=== PATIENT | female | born 1970 | race Caucasian/White ===

== ENCOUNTER 2024-09-06 11:52 | Outpatient (CLI) | payer OTHER, SELFPAY | END 2024-09-06 11:53 | disposition home or self-care (01) | PROVIDERS: PCP Internal Medicine; Visit Provider Internal Medicine | DX: E11.9 Type 2 diabetes mellitus without complications (principal); Z79.85 Long-term (current) use of injectable non-insulin antidiabetic drugs | CPT/HCPCS: 80053; 80061; 82043; 82570 ==

== ENCOUNTER 2024-11-21 09:42 | Emergency (ER) | payer OTHER, SELFPAY ==
--- OUTSIDE RECORDS SUMMARY | 2024-11-21 09:44 | XMS_ITS | Patient Health Record ---
Author Organization [facility] Address [address] [place] [address] Care Team Providers Care General Production Manager Name Role Phone Olga Quick Primary Care Provider REYNALDO Ashraf Unavailable [phone] None, None Unavailable Unavailable Allergies Allergen (clinical drug ingredient) Drug/Non Drug Allergy documented on EMR Reaction Allergy Type Onset Date Status Penicillin Unknown Drug Allergy Active Reason For Referral No Information Medications Medication SIG (Take, Route, Frequency, Duration) Notes Start Date End Date Status Omeprazole 20 MG Capsule Delayed Release TAKE 1 CAPSULE BY MOUTH DAILY Oral; Duration: 90 Active Breo Ellipta 100-25 MCG/ACT Aerosol Powder Breath Activated 1 puff Inhalation Once a day Active Chlorthalidone 25 MG Tablet Oral; Duration: 90 Active Atorvastatin Calcium 20 MG Tablet Oral; Duration: 90 Active Lisinopril 20 MG Tablet Oral; Duration: 90 Active metFORMIN HCl ER 500 MG Tablet Extended Release 24 Hour Oral; Duration: 90 Active Sertraline HCl 100 MG Tablet Oral; Duration: 90 Active Ventolin HFA 108 (90 Base) MCG/ACT Aerosol Solution Inhalation; Duration: 17 Active Naproxen 500 MG Tablet TAKE ONE TABLET B Y MOUTH TWICE A DAY Oral; Duration: 30 Active Social History Tobacco Use: Social History Observation Description Date Details (start date - stop date) Current Smoker NA - NA Social History Alcohol Use: Social Info Question Answer Notes Alcohol Screen Did you have a drink containing alcohol in the past year? Yes How often did you have a drink containing alcohol in the past year? 2 to 4 times a month (2 points) How often did you have 6 or more drinks on one occasion in the past year? Never (0 point) Points 2 Interpretation Negative Recreational drug use Social Info Question Answer Notes Did you ever use recreational drugs? Answer: No Tobacco Use: Social Info Question Answer Notes Tobacco use/smoking Are you a current smoker How often do you smoke cigarettes? every day How many cigarettes a day do you smoke? 6-10 How soon after you wake up do you smoke your first cigarette? 6-30 minutes Are you interested in quitting? 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.0) Active confirmed Problem Vasomotor rhinitis (6589883) Vasomotor rhinitis (J30.0) Active confirmed Plan Of Treatment No Information Insurance Providers Payer Name Payer Address Payer Phone Subscriber Number Group Number Insured Name Patient Relationship to Insured Coverage Start Date Coverage End Date [employer] [address] [place], [place] [id number] [phone] Akilah Dodge Self - patient is the insured [id number] [place] prior [place] 2023 [address] [address] [place], [place] [id number] Akilah Dodge Self - patient is the insured [place] [employer] [address] [address] [place] [address] [id number] Akilah Dodge Self - patient is the insured Medical (General) History Medical History History ICD Code anesthesia problems cataracts asthma/lung disease diabetes hypertension sleep apnea Surgical History Surgery Date(Month/Year) Sven fundopleaton 2020 ASDF 2019 Ablasion 2018 Elbow 2000 septo, catrina SMR turbs, catrina [employer] [place] 03/2022
--- OUTSIDE RECORDS SUMMARY | 2024-11-21 09:44 | XMS_ITS | Patient Health Record ---
Author Organization [facility] Address [address] [address] Care Team Providers Care Presidential Support Specialist Name Role Phone MicheleUriry Primary Care Provider Allergies Allergen (clinical drug ingredient) Drug/Non Drug Allergy documented on EMR Reaction Allergy Type Onset Date Status Penicillin Unknown Drug Allergy Active Reason For Referral No Information Medications Medication SIG (Take, Route, Frequency, Duration) Notes Start Date End Date Status Omeprazole 20 MG 1 capsule 30 minutes before morning meal Orally Once a day; Duration: 30 day(s) Active hydrOXYzine HCl 25 MG 1 tablet at bedtim e as needed Orally Once a day; Duration: 30 day(s) Not-Taking clonazePAM 0.5 MG 1 tablet at bedtime Orally Once a day Active Ozempic (0.25 or 0.5 MG/DOSE) 2 MG/3ML .25ml Subcutaneous Once a week Active Chlorthalidone 25 MG 0.5 tablet Orally O nce a day Active Lisinopril 10 MG 1 tablet Orally Once a day Active Sertraline HCl 50 MG 1 tablet Orally Onc e a day; Duration: 30 day(s) Active Ondansetron 4 MG 1 tablet on the tong ue and allow to dissolve Orally Once a day; Duration: 30 day(s) Not-Taking Atorvastatin Calcium 20 MG 1 tablet Orally Once a day; Duration: 30 day(s) Active metFORMIN HCl 1000 MG 1 tablet with a me al Orally Once a day Active Problems Problem Type SNOMED Code ICD Code Onset Dates Problem Status W/U Status Risk Notes Problem Abnormal uterine bleeding (2776552890978 0) Abnormal uterine bleeding (N93.9) Active confirmed Plan Of Treatment No Information Insurance Providers Payer Name Payer Address Payer Phone Subscriber Number Group Number Insured Name Patient Relationship to Insured Coverage Start Date Coverage End Date [employer] [address] [address] [place] [id number] Akilah Dodge Self - patient is the insured 1 [facility] [employer] [address] [address] [place] [address] [id number] Akilah Dodge Self - patient is the insured 0 Medical (General) History Medical History History ICD Code Obstructive sleep apnea Palpitations Epidermoid cyst Hyperlipidemia Hypertension Prediabetes h/o PCOS Surgical History Surgery Date(Month/Year) 1989 Suzanna moved to other side 2009 Cervical ASDF 2019 Epidermoid cyst 05/2022 Endometrial ablation 2017
--- OUTSIDE RECORDS SUMMARY | 2024-11-21 09:45 | XMS_ITS | Clinical Summary ---
Author Organization [facility] Address [address] [place] [address] Care Team Providers Care Employee Development Director Name Role Phone Pcp, No Primary Care Provider Unavailabl e Allergies Active Allergy Reactions Criticality Noted Date Comments Codeine *Unknown 07/02/2001 Swelling; has been taking cough syrup with codeine ok Doxycycline Rash,Edema 04/04/2014 Nickel Rash 10/27/2021 Penicillins *Unknown - Childhood Rxn,Hives,Rash 09/13/2010 Childhood allergy Sulfa (Sulfonamide Antibiotics) Hives 02/03/2020 Medications lisinopriL (PRINIVIL; ZESTRIL) 10 mg tablet Take 10 mg by mouth once daily. Active atorvastatin (LIPITOR) 20 mg tablet Take 20 mg by mouth once daily. Active chlorthalidone (HYGROTON) 12.5 mg as half tablet Take 12.5 mg by mouth every morning. Active clonazePAM (KLONOPIN) 0.5 mg tablet TAKE ONE TABLET BY MOUTH EVERY DAY NEEDED FOR PANIC ATTACK MAY CAUSE DROWSINESS DO NOT DRIVE IF TAKEN 2 Active sertraline (ZOLOFT) 50 mg tablet TAKWE 1 TABLET BY MOUTH DAILY 2 Active Ozempic 0.25 mg or 0.5 mg(2 mg/1.5 mL) pen INJECT 0.25 MG UNDER THE SKIN EVERY 7 DAYS 3 Active ondansetron (ZOFRAN ODT) 4 mg disintegrating tablet Take 4 mg by mouth. 2 Active omeprazole (PRILOSEC) 20 mg Delayed-Release capsule Take 20 mg by mouth. 3 Active naproxen (NAPROSYN) 500 mg tablet Take 500 mg by mouth two times daily. 2 Active metFORMIN (GLUCOPHAGE) 500 mg tablet TAKE ONE TABLET BY MOUTH EVERY MORNING AND TAKE TWO TABLETS BY MOUTH EVERY EVENING 3 Active metoclopramide HCl (REGLAN) 10 mg tabletIndications: Nausea vomiting and diarrhea Take 1 Tablet (10 mg) by mouth every 6 hours if needed for Nausea/Vomitin g. 20 Tablet 3 Active magic mouthwash 1:1:1 (diphen 12.5mg/5mL-lidocai ne 2%-maalox [id number]/5ml) (AMB MIX)Indications:Mo uth pain,Pharyngitis, unspecified etiology Swish and spit 5-10 mL by mouth 4 times daily if needed for Mouth Sores or Sore Throat (equal parts maalox, viscous lidocaine, benadryl). 240 mL 5 Active Social History Tobacco Use Types Packs/Day Years Used Date Smoking Tobacco: Every Day Cigarettes Smokeless Tobacco: Never Alcohol Use Standard Drinks/Week Comments Yes 3 (1 standard drink = 0.6 oz pur e alcohol) occ Interpersonal Safety Answer Date Record ed Are you being hit, kicked, p ushed or yelled at (see row info)? No 09/06/2023 Interpersonal Safety Abuse 12 - 18 Not on file 09/06/2023 Interpersonal Safety Ambulatory Vulnerability No t on file 09/06/2023 Comments No Sex and Gender Information Value Date Recorded Sex Assigned at Female 06/01/2024 5:09 AM CDT Legal Sex Female 10:28 PM CDT Gender Identity Female 06/01/2024 5:09 AM CDT Sexual Orientation Straight 06/01/2024 5: 09 AM CDT Obstetrics History Last Filed Vital Signs Vital Sign Reading Time Taken Comments Blood Pressure 153/91 06/03/2024 10:57 AM CDT Pulse 71 06/03/2024 10:57 AM CDT Temperature 37.1 C (98.7 F) 06/03/2024 10:57 AM CDT Respiratory Rate 16 06/03/2024 10:57 AM CDT Oxygen Saturation 99% 06/03/2024 10:57 AM CDT Inhaled Oxygen Concentration - - Weight 77.1 kg (170 lb) 06/03/2024 10:57 AM CDT Height 165.1 cm (5' 5) 06/03/2024 10:57 AM CDT Body Mass Index 28.29 06/03/2024 10:57 AM CDT Plan of Treatment Health Maintenance Due Date Last Done Comments Tetanus booster 09/16/1983 Depression screening for age 12+ 1984 HIV for age 15-65 09/16/1987 BMI (ht and wt on same day) for age 18+ 1990 Hepatitis C screening for age 18-79 1990 Hepatitis B series for 19+ ( 1 of 3 - 19+ 3-dose series) 09/16/1991 Pneumococcal series for age 50+ (1 of 2 - PCV) 09/16/1991 Pap test for age 21-65 1993 Colonoscopy through age 75 2017 Lipids for age 45-75 2017 Mammogram for age 45-75 2017 Zoster (shingles) series for age 50+ (1 of 2) 2022 COVID-19 vaccine series ( - 2024- season) 2024 02/11/2021, 07/14/2020, 06/16/2020 Influenza Vaccine (#1) 2024 RSV vaccine for adults or pr egnancy (1 - 1-dose 75+ series) 09/16/2047 Insurance [place] [id number] [place] [id number] Care Teams Employee Development Director Relationship Specialty Start Date End Date Pcp, No . PCP - General 05/28/24
[2024-11-21 09:46] VITALS: BP 111/67; PULSE 70; RESP 16; TEMP 36.2; O2SAT 98; BMI 28.3
--- NOTE | 2024-11-21 10:13 | ED.GENADULT ---
HPI - General Adult General Chief complaint: Lower Extremity Swelling Stated complaint: L foot swollen and in pain Time Seen by Provider: 11/21/24 09:51 Source: patient Mode of arrival: ambulatory Limitations: no limitations History of Present Illness HPI narrative: 54-year-old female presenting today with left foot pain. Pain was present when she woke up Thursday morning, yesterday. Pain is in present for the last 24 hours it has been slowly getting worse. She denies trauma to the leg. She states that on Thursday she did have leftover sloppy [place], no alcohol use. She denies fevers, chills, nausea or vomiting. She has a hard time walking secondary to the pain. Pain does not radiate up the leg. This has never happened to her before. Her past medical history significant for diabetes, not insulin dependent. She also has a history of hypertension and anxiety. Patient takes metformin, Ozempic, omeprazole, lisinopril, chlorthalidone, atorvastatin, sertraline. Related Data Home Medications ?Medication ?Instructions ?Recorded ?Confirmed atorvastatin 20 mg tablet 20 mg PO QDAY 09/06/24 11/21/24 chlorthalidone 12.5 mg tablet 12.5 mg PO QDAY 09/06/24 11/21/24 lisinopril 10 mg tablet 10 mg PO QDAY 09/06/24 11/21/24 metformin 500 mg tablet 1,500 mg PO QDAY 09/06/24 11/21/24 omeprazole 20 mg capsule,delayed 20 mg PO QDAY 09/06/24 11/21/24 release Previous Rx's ?Medication ?Instructions ?Recorded semaglutide 1 mg/dose (4 mg/3 mL) 1 mg (0.75 mL) subcut QWEEK #3 mL 11/02/24 subcutaneous pen injector (Ozempic) sertraline 50 mg tablet 50 mg PO QDAY #90 tabs 11/02/24 colchicine 0.6 mg tablet 0.6 mg PO BID #60 tabs 11/21/24 Allergies Allergy/AdvReac Type Severity Reaction Status Date / Time codeine AdvReac Mild Unknown Verified 11/21/24 09:46 Penicillins AdvReac Mild Hives Verified 11/21/24 09:46 Review of Systems Status of ROS: Reports: 10 or more systems reviewed and unremarkable except as noted in History and below [facility] Medical History Anxiety ?F41.9 - Anxiety disorder, unspecified (ICD-10) Diabetes mellitus ?E11.9 - Type 2 diabetes mellitus without complications (ICD-10) Social History What is your current living situation?: I presently have a place to live Problems where you live: no known problems In the past 12 months, utilities in danger of being shut off: no In past 12 months, lack of transportation kept you from medical appts, meetings, work, or getting things needed for daily living: no In the past 12 mos, have been you worried that your food would run out before you had money to buy more?: never true In the past 12 mos, the food you bought just didn't last and you didn't have money to buy more?: never true How often does anyone, including family, friends and others, physically hurt you: never How often does anyone, including family, friends and others, insult or talk down to you: rarely How often does anyone, including family, friends and others, threaten you with harm: never How often does anyone, including family, friends and others, scream or curse at you: rarely Health Related Social Needs: Other personal risk factors, not elsewhere classified (Z91.89) Exam Narrative: Exam Narrative: Well-nourished well-developed patient in no acute distress. Alert and oriented. Answers questions appropriately. Mood and affect are appropriate. Thoughts are goal oriented and rational. No tangential or magical thinking noted. Patient speaks in full sentences without needing to catch her breath. HEENT: Normocephalic atraumatic. Pupils are equally round reactive to light. Extraocular muscles are intact. Conjunctivae are moist without any icterus noted. Moist mucous membranes. Extremities: Patient has swelling at the base of the big toe on the left. She has tenderness at the base of the big toe. The area is pink but not erythematous, not hot to touch. The remainder of the foot is entirely normal. Const: Vital Signs, click to edit/add: Vital Signs - 24 hr 11/21/24 09:46 Temperature 97.2 F L Pulse Rate [Pulse Oximeter] 70 Respiratory Rate 16 Blood Pressure [Ri ght Upper Arm] 111/67 Pulse Oximetry 98 Oxygen Delivery Me thod Room Air Course Vital Signs Vital signs: Initial Vital Signs Temperature 97.2 F L 11/21/24 09:46 Temperature Source Temporal Artery Scan 11/21/24 09:46 Pulse Rate 70 11/21/24 09:46 Pulse Rhythm Regular 11/21/24 09:46 Pulse Strength 3+ Normal 11/21/24 09:46 Respiratory Rate 16 11/21/24 09:46 Blood Pressure 111/67 11/21/24 09:46 Blood Pressure Mean 81 11/21/24 09:46 Blood Pressure Position Sitting 11/21/24 09:46 Pulse Oximetry 98 11/21/24 09:46 Oxygen Delivery Method Room Air 11/21/24 09:46 Vital Signs Temperature 97.2 F L 11/21/24 09:46 Pulse Rate 70 11/21/24 09:46 Respiratory Rate 16 11/21/24 09:46 Blood Pressure 111/67 11/21/24 09:46 Pulse Oximetry 98 11/21/24 09:46 Oxygen Delivery Method Room Air 11/21/24 09:46 Temperature 97.2 F L 11/21/24 09:46 Pulse Rate 70 11/21/24 09:46 Respiratory Rate 16 11/21/24 09:46 Blood Pressure 111/67 11/21/24 09:46 Pulse Oximetry 98 11/21/24 09:46 Oxygen Delivery Method Room Air 11/21/24 09:46 Medical Decision Making MDM Narrative Medical decision making narrative: 54-year-old female with pain at the base of the big toe, symptoms consistent with gout. Discussed the possibility of joint infection or cellulitis. However, there is no significant erythema or skin induration to suggest that diagnosis. At this point we will treat for gout. Uric acid levels pending. Will treat with colchicine given patient's history of diabetes. We discussed follow-up and reasons to return to the ER. Patient was in agreement and had no other questions. Discharge Plan Discharge Clinical Impression: Gout attack Patient Disposition: Home, Self-Care Condition: Stable Instructions: Gout (ED) Additional Instructions: Take medications as prescribed. Follow-up with your primary care provider this coming week to go over your uric acid levels and to make sure that you are improving. If you develop fevers, vomiting or redness that spreads up the foot then you should return to the emergency department. Prescriptions: New colchicine 0.6 mg tablet 0.6 mg PO BID Qty: 60 0RF Rx Instructions: Day 1: Take 2 tablets right away. Can repeat a 3rd tablet after 1 hour. Starting on Day 2: Take 1 tablet twice daily until pain improves - then go down to 1 tablet once a day until flare resolves. No Action metformin 500 mg tablet 1,500 mg PO QDAY atorvastatin 20 mg tablet 20 mg PO QDAY lisinopril 10 mg tablet 10 mg PO QDAY omeprazole 20 mg capsule,delayed release(DR/EC) 20 mg PO QDAY chlorthalidone 12.5 mg tablet 12.5 mg PO QDAY Ozempic 1 mg/dose (4 mg/3 mL) pen injector 1 mg subcut QWEEK Qty: 3 0RF sertraline 50 mg tablet 50 mg PO QDAY Qty: 90 3RF Follow Up/Referrals: Deepak Gan MD [Primary Care Provider, Internal Medicine] Stand Alone [facility]: [facility] Info Instructions
== END 2024-11-21 10:41 | disposition home or self-care (01) ==
PROVIDERS: Emergency Provider Family Medicine; PCP Internal Medicine
DX: M10.9 Gout, unspecified (principal)
CPT/HCPCS: 36415; 84550; 99283; 99284